=== PATIENT | male | born 1960 | race Asian ===

== ENCOUNTER 2018-06-22 06:12 | Day surgery (SDC) | payer OTHER ==
[2018-06-22] MEDS ORDERED: IPRATROPIUM (NEB) 0.5 MG/2.5 ML AMP HHN (07:30)
[2018-06-22] MEDS ORDERED: MIDAZOLAM 1 MG/ML 2 ML INJ IV (07:30)
[2018-06-22] MEDS ORDERED: HYDROmorphONE 1 MG/5 ML IV SYRINGE IV ×2 (07:30)
[2018-06-22] MEDS ORDERED: ALBUTEROL 0.083% (NEB) 2.5 MG/3 ML AMP HHN (07:30)
[2018-06-22] MEDS ORDERED: ONDANSETRON 4 MG INJ IV (07:30)
[2018-06-22] MEDS ORDERED: MEPERIDINE 25 MG INJ IV (07:30)
[2018-06-22] MEDS ORDERED: TRIMETHOBENZAMIDE 100 MG/ML VIAL IM (07:30)
[2018-06-22] MEDS ORDERED: LABETALOL HCL 20MG INJ IV (07:30)
[2018-06-22] MEDS ORDERED: FENTAnyl 50 MCG/ML VIAL IV ×2 (07:30)
[2018-06-22] MEDS ORDERED: DIPHENHYDRAMINE 50 MG INJ IV (07:30)
[2018-06-22] MEDS ORDERED: hydrALAzine 20 MG INJ IV (07:30)
[2018-06-22] MEDS ORDERED: OXYCODONE/ACETAMINOPHEN (5/325) TAB PO ×2 (07:30)
[2018-06-22] MEDS ORDERED: EPHEDrine SULFATE 50 MG/5 ML SYG IV (07:30)
[2018-06-22] MEDS ORDERED: PROPOFOL 20 ML (07:41)
[2018-06-22] MEDS ORDERED: MIDAZOLAM 1 MG/ML 2 ML INJ (07:41)
[2018-06-22] MEDS ORDERED: FENTAnyl 50 MCG/ML VIAL (07:41)
[2018-06-22] MEDS ORDERED: CEFAZOLIN 1 GM INJ (07:41)
[2018-06-22] MEDS ORDERED: ROCURONIUM 50 MG INJ (07:41)
[2018-06-22] MEDS ORDERED: GLYCOPYRROLATE 0.4 MG INJ ×2 (07:41→08:45)
[2018-06-22] MEDS ORDERED: NEOSTIGMINE 3 MG/3 ML SYRINGE ×2 (07:41→08:45)
[2018-06-22] MEDS ORDERED: ONDANSETRON 4 MG INJ (07:42)
[2018-06-22] MEDS ORDERED: DEXAMETHASONE 4 MG/ML 5 ML INJ (07:42)
[2018-06-22] MEDS ORDERED: ROPIVACAINE 0.5 % 30 ML VIAL (07:43)
[2018-06-22] MEDS ORDERED: PHENYLephrine (100 MCG/ML) 10ML SYG (08:01)
[2018-06-22] MEDS: POLYMYXIN/BACITRACIN 1L IRRIG IRR (08:20)
[2018-06-22] MEDS ORDERED: SOD CHLORIDE 0.9% 1,000 ML IV (09:00)
[2018-06-22] MEDS ORDERED: CEFAZOLIN 2 GM/50 ML (PMX) 50 ML IVPB (09:00)
[2018-06-22] MEDS: HYDROmorphONE 1 MG/5 ML IV SYRINGE IV ×2 (09:14→09:57)
[2018-06-22] MEDS: FENTAnyl 50 MCG/ML VIAL IV ×2 (09:31→09:58)
[2018-06-22] MEDS: HYDROCODONE/APAP (5/325) TAB PO (09:41)
== END 2018-06-22 11:15 | disposition home or self-care (01) ==
LOC: SDS 06:12
DX: K40.90 Unilateral inguinal hernia, without obstruction or gangrene, not specified as recurrent (principal)
CPT/HCPCS: 49507